=== PATIENT | male | born 1955 | race Caucasian/White ===

== ENCOUNTER 2024-10-15 14:52 | Outpatient (CLI) | payer OTHER | END 2024-10-15 14:53 | disposition home or self-care (01) | LOC: CSHULT 14:52 | PROVIDERS: ATTEND Internal Medicine | DX: N18.9 Chronic kidney disease, unspecified (principal) | CPT/HCPCS: 76770 ==

== ENCOUNTER 2025-01-19 08:54 | Outpatient (CLI) | payer OTHER | END 2025-01-19 08:55 | disposition home or self-care (01) | LOC: CSHCT 08:54 | PROVIDERS: ATTEND Internal Medicine | DX: I69.911 Memory deficit following unspecified cerebrovascular disease (principal) | CPT/HCPCS: 70450 ==

== ENCOUNTER 2025-04-05 15:56 | Emergency (ER) | payer OTHER ==
[2025-04-05 16:58] LABS: #Basophils Less than 0.03 10x3/uL (0.0-0.2); #Eosinophils Less than 0.03 10x3/uL (0.0-0.5); #Monocytes 0.68 10x3/uL (0.0-1.1); #Neutrophils 3.80 10x3/uL (1.5-8.4); %Basophils 0.4 % (0.0-2.0); %Eosinophils 0.4 % (0.0-6.0); %Lymphocytes 19.0 % (18.0-47.0); %Monocytes 12.2 % (0.0-10.0); %Neutrophils 67.8 % (40.0-75.0); Hematocrit 39.7 % (38.8-50.0); Hemoglobin 13.8 g/dL (13.5-17.5); Mean Corpuscular Hemoglobin 30.1 pg (27.0-33.0); Mean Corpuscular Volume 86.7 fL (81.2-95.1); Platelet Count 138 10x3/uL (150-450); Red Blood Cell (RBC) Count 4.58 10x6/uL (4.32-5.72); White Blood Cell (WBC) Count 5.59 10x3/uL (3.5-10.5)
[2025-04-05 17:05] LABS: ALT (SGPT) 37 U/L (Less than 45); AST (SGOT) 44 U/L (11-34); Albumin 3.9 g/dL (3.1-4.5); Alkaline Phosphatase 47 U/L (40-110); Anion Gap 13 mmol/L (10-20); BUN (Urea Nitrogen) 24 mg/dL (8.4-25.7); Bilirubin, Total 0.3 mg/dL (0.3-1.2); Calc. Creatinine Clearance 0 mL/min (70-130); Calcium 8.4 mg/dL (7.8-10.44); Carbon Dioxide 20 mmol/L (23-31); Chloride 105 mmol/L (98-107); Globulin 2.7 g/dL (2.4-3.5); Glucose 156 mg/dL (80-115); Magnesium 2.0 mg/dL (1.6-2.6); Potassium 4.2 mmol/L (3.5-5.1); Sodium 134 mmol/L (136-145)
[2025-04-05 17:09] LABS: Troponin I 0.014 ng/mL (< 0.028)
[2025-04-05 17:53] LABS: Platelet Adequacy Comment Appears Decreased
== END 2025-04-05 20:21 | disposition home or self-care (01) ==
LOC: CSHERS 15:56
DX: J10.1 Influenza due to other identified influenza virus with other respiratory manifestations (principal); R53.1 Weakness; E11.9 Type 2 diabetes mellitus without complications; I10 Essential (primary) hypertension
CPT/HCPCS: 36416; 70450; 71045; 80053; 83605; 83735; 83880; 84484; 85025; 87428; 93005; 96360; 96361